=== PATIENT | female | born 1975 | race Two or more races ===

== ENCOUNTER 2018-02-07 18:16 | Emergency (ER) | payer OTHER ==
[~2018-02-07] VITALS: Ht 162.6 cm; Wt 74.8 kg
[~2018-02-07 18:16] MED LIST: AVALIDE 150/12.1 TAB PO; AVAPRO150 MG PO; CIPRO500 MG PO; FIORICET 50-321 EACH PO; KETO10TA2 PO; LEVSIN0.125 MG PO; LOSARTAN-HCTZ1 EAC2; PROTONIX40 MG PO; TAMS0.4C PO; ULTRACET PO; ZANTAC300 MG PO
== END 2018-02-07 21:41 | disposition home or self-care (01) ==
LOC: ER 18:16
DX: N30.80 Other cystitis without hematuria (principal); N39.0 Urinary tract infection, site not specified

== ENCOUNTER → 2018-02-12 | Emergency (ER) | payer OTHER ==
[~2018-02-12] VITALS: Ht 157.5 cm; Wt 61.2 kg
== END | disposition home or self-care (01) ==
LOC: ER 07:05
DX: N39.0 Urinary tract infection, site not specified (principal)

== ENCOUNTER 2018-07-20 07:33 | Outpatient (CLI) | payer OTHER | END 2018-07-20 14:44 | disposition home or self-care (01) | LOC: MAMO-SONO 07:33 | DX: N64.89 Other specified disorders of breast (principal); Z12.31 Encounter for screening mammogram for malignant neoplasm of breast ==

== ENCOUNTER 2018-11-20 11:32 | Emergency (ER) | payer OTHER ==
[~2018-11-20] VITALS: Ht 154.9 cm; Wt 72.6 kg
[2018-11-20] MEDS ORDERED: LOSARTAN-HCTZ1 EACH (11:35)
== END 2018-11-20 12:42 | disposition home or self-care (01) ==
LOC: ER 11:32
DX: S93.402A Sprain of unspecified ligament of left ankle, initial encounter (principal); X50.3XXA Overexertion from repetitive movements, initial encounter; Y93.89 Activity, other specified; Y92.69 Other specified industrial and construction area as the place of occurrence of the external cause; Y99.8 Other external cause status

== ENCOUNTER 2019-02-15 13:50 | Emergency (ER) | payer OTHER ==
[~2019-02-15] VITALS: Ht 154.9 cm; Wt 72.1 kg
[~2019-02-15 13:50] MED LIST changes: +LOSARTAN-HCTZ1 EACH
[2019-02-15] MEDS ORDERED: ZANTAC 7575 MG PO (13:56)
[2019-02-15] MEDS ORDERED: CIPRO500 MG PO (15:56)
[2019-02-15] MEDS ORDERED: KETO10TA2 PO (15:56)
== END 2019-02-15 18:39 | disposition home or self-care (01) ==
LOC: ER 13:50
DX: N20.1 Calculus of ureter (principal); N39.0 Urinary tract infection, site not specified

== ENCOUNTER 2019-04-10 14:45 | Emergency (ER) | payer OTHER ==
[~2019-04-10] VITALS: Ht 154.9 cm; Wt 71.7 kg
[~2019-04-10 14:45] MED LIST changes: +ZANTAC 7575 MG PO
[2019-04-10] MEDS ORDERED: ZESTRIL20 MG (14:53)
[2019-04-10] MEDS ORDERED: ZITHROMAX TRI-500 MG PO (16:01)
== END 2019-04-10 16:17 | disposition home or self-care (01) ==
LOC: ER 14:45
DX: J31.2 Chronic pharyngitis (principal)

== ENCOUNTER 2019-05-05 11:14 | Emergency (ER) | payer OTHER ==
[~2019-05-05] VITALS: Ht 154.9 cm; Wt 72.6 kg
[~2019-05-05 11:14] MED LIST changes: +ZESTRIL20 MG; +ZITHROMAX TRI-500 MG PO
== END 2019-05-05 14:00 | disposition home or self-care (01) ==
LOC: ER 11:14
DX: J40 Bronchitis, not specified as acute or chronic (principal); B34.9 Viral infection, unspecified